=== PATIENT | female | born 1930 | race Caucasian/White ===

== ENCOUNTER 2016-07-19 10:25 | Inpatient (IN) | payer OTHER ==
[~2016-07-19] VITALS: Ht 165.1 cm; Wt 56.7 kg
[2016-07-19 10:25] VITALS: BP_SYST 138
[2016-07-19] MEDS ORDERED: GENTAMICIN 120 mg/100 mL NS 100 ML IV ONE (11:15)
[2016-07-19] MEDS ORDERED: NS 500 ML IV ONE (11:15)
[2016-07-19 11:24] LABS: ANION GAP 5 (5-15); CALCIUM 9.9 mg/dL (8.4-11.0); CHLORIDE 101 mmol/L (98-107); CREATININE 0.82 mg/dL (0.55-1.30); GLUCOSE 106 mg/dL (70-99); POTASSIUM 4.1 mmol/L (3.5-5.1); SODIUM SERUM 135 mmol/L (136-145); UREA NITROGEN, BLOOD 14 mg/dL (8-21)
[2016-07-19 11:25] LABS: BASOPHILS # (AUTO) 0.1 K/uL (0.0-0.2); BASOPHILS % (AUTO) 0.6 % (0.0-2.0); EOSINOPHILS # (AUTO) 0.1 K/uL (0.0-0.4); HEMATOCRIT 35.1 % (36-48); HEMOGLOBIN 11.3 g/dL (12.0-16.0); LYMPHOCYTES # (AUTO) 1.6 K/uL (1.0-5.5); LYMPHOCYTES % (AUTO) 15.4 % (20.5-51.5); MEAN CORPUSCULAR HEMOGLOBIN 27 pg (27-31); MEAN CORPUSCULAR HGB CONC 32 % (32-36); MEAN CORPUSCULAR VOLUME 85 fL (79.0-98.0); MONOCYTES # (AUTO) 0.8 K/uL (0.0-1.0); NEUTROPHILS # (AUTO) 7.5 K/uL (1.8-7.7); PLATELET COUNT (AUTO) 467 K/uL (130-430); RED BLOOD CELL COUNT(AUTO) 4.14 MIL/uL (4.2-6.2); RED CELL DISTRIBUTION WIDTH 13.6 % (9.0-15.0); WHITE BLOOD COUNT (AUTO) 10.1 K/uL (4.8-10.8)
[2016-07-19 11:28] LABS: ALANINE AMINOTRANSFERASE 14 U/L (12-78); ALBUMIN 3.6 g/dL (3.4-4.8); ASPARTATE AMINOTRANSFERASE 13 U/L (10-37); TOTAL BILIRUBIN 0.5 mg/dL (0.0-1.0); TOTAL PROTEIN, SERUM 7.5 g/dL (6.4-8.3)
[2016-07-19] MEDS ORDERED: ALBU8.5H8 INH (12:24)
[2016-07-19] MEDS ORDERED: ASPI81TA2 PO (12:24)
[2016-07-19] MEDS ORDERED: SEREVENT IH (12:24)
[2016-07-19] MEDS ORDERED: CALC-886 PO (12:24)
[2016-07-19] MEDS ORDERED: LIP40 PO (12:24)
[2016-07-19] MEDS ORDERED: LISI-600 PO (12:24)
[2016-07-19 13:19] LABS: BILIRUBIN,URINE 1+ (NEGATIVE); BLOOD, URINE 2+ (NEGATIVE); CLARITY/URINE CLOUDY (CLEAR); COLOR,URINE YELLOW (YELLOW); GLUCOSE,URINE NEGATIVE (NEGATIVE); KETONES,URINE NEGATIVE (NEGATIVE); LEUKOCYTE ESTERASE ,URINE 3+ (NEGATIVE); NITRITE, URINE NEGATIVE (NEGATIVE); PROTEIN URINE NEGATIVE (NEGATIVE); UROBILINOGEN,URINE 0.2 (0.2-1.0)
[2016-07-19 13:21] LABS: BACTERIA,URINE MODERATE /HPF (None Seen); MUCUS,URINE 1+ /LPF (None Seen); RBC,URINE 20-50 /HPF (0-3); WBC,URINE >100 /HPF (0-3)
[2016-07-19 16:58] VITALS: BP_SYST 113
[2016-07-19] MEDS ORDERED: ONDANSETRON HCL 4 MG/2 ML VIAL IVP PRN (17:00)
[2016-07-19] MEDS ORDERED: ACETAMINOPHEN 325 MG TABLET PO PRN (17:00)
[2016-07-19] MEDS ORDERED: ALBUTEROL SULFATE 0.083% 2.5 MG/3 ML VIAL.NEB INH PRN (17:00)
[2016-07-19] MEDS: NACL 0.9% 1,000 ML IV SCH (18:17)
[2016-07-19 19:50] VITALS: BP_SYST 113
[2016-07-19 20:00] VITALS: BP_SYST 113
[2016-07-19] MEDS: MEROPENEM 1 GM in NS 100 ML IV SCH (21:02)
[2016-07-19] MEDS: ALBUTEROL SULFATE 0.083% 2.5 MG/3 ML VIAL.NEB INH SCH (23:44)
[2016-07-20 00:27] VITALS: BP_SYST 130
[2016-07-20 02:07] VITALS: BP_SYST 120
[2016-07-20] MEDS: NACL 0.9% 1,000 ML IV SCH ×2 (07:30→19:27)
[2016-07-20 07:59] VITALS: BP_SYST 144
[2016-07-20 08:05] LABS: BASOPHILS % (AUTO) 0.5 % (0.0-2.0); EOSINOPHILS # (AUTO) 0.1 K/uL (0.0-0.4); EOSINOPHILS % (AUTO) 1.6 % (0.0-4.0); HEMATOCRIT 31.1 % (36-48); LYMPHOCYTES # (AUTO) 2.5 K/uL (1.0-5.5); LYMPHOCYTES % (AUTO) 32.8 % (20.5-51.5); MEAN CORPUSCULAR HEMOGLOBIN 27 pg (27-31); MEAN CORPUSCULAR HGB CONC 32 % (32-36); MEAN CORPUSCULAR VOLUME 85 fL (79.0-98.0); MONOCYTES # (AUTO) 0.7 K/uL (0.0-1.0); MONOCYTES % (AUTO) 9.1 % (1.7-9.3); NEUTROPHILS # (AUTO) 4.3 K/uL (1.8-7.7); PLATELET COUNT (AUTO) 338 K/uL (130-430); RED BLOOD CELL COUNT(AUTO) 3.66 MIL/uL (4.2-6.2); RED CELL DISTRIBUTION WIDTH 13.4 % (9.0-15.0); WHITE BLOOD COUNT (AUTO) 7.6 K/uL (4.8-10.8)
[2016-07-20] MEDS: MEROPENEM 1 GM in NS 100 ML IV SCH ×2 (08:46→20:35)
[2016-07-20] MEDS: ASPIRIN 81 MG TAB.CHEW PO SCH (08:46)
[2016-07-20] MEDS: ENOXAPARIN SODIUM 30 MG/0.3 ML SYRINGE SUBCUT SCH (08:46)
[2016-07-20] MEDS: ATORVASTATIN 20 MG TABLET PO SCH (08:46)
[2016-07-20 08:59] LABS: ANION GAP 7 (5-15); CALCIUM 8.8 mg/dL (8.4-11.0); CHLORIDE 106 mmol/L (98-107); CREATININE 0.73 mg/dL (0.55-1.30); GLUCOSE 107 mg/dL (70-99); POTASSIUM 4.1 mmol/L (3.5-5.1); SODIUM SERUM 138 mmol/L (136-145); UREA NITROGEN, BLOOD 13 mg/dL (8-21)
[2016-07-20] MEDS ORDERED: SALMETEROL XINAFOATE 50 MCG 1 EA DISK.W.DEV INH SCH (09:00)
[2016-07-20] MEDS: ALBUTEROL SULFATE 0.083% 2.5 MG/3 ML VIAL.NEB INH SCH ×3 (09:41→23:13)
[2016-07-20 12:26] VITALS: BP_SYST 108
[2016-07-20 16:56] VITALS: BP_SYST 111
[2016-07-20 20:00] VITALS: BP_SYST 111
[2016-07-21 00:15] VITALS: BP_SYST 96
[2016-07-21 04:03] VITALS: BP_SYST 120
[2016-07-21] MEDS: NACL 0.9% 1,000 ML IV SCH (05:07)
[2016-07-21 07:15] LABS: BASOPHILS # (AUTO) 0.1 K/uL (0.0-0.2); BASOPHILS % (AUTO) 0.9 % (0.0-2.0); EOSINOPHILS # (AUTO) 0.2 K/uL (0.0-0.4); EOSINOPHILS % (AUTO) 2.2 % (0.0-4.0); HEMATOCRIT 30.6 % (36-48); LYMPHOCYTES # (AUTO) 1.4 K/uL (1.0-5.5); LYMPHOCYTES % (AUTO) 20.1 % (20.5-51.5); MEAN CORPUSCULAR HEMOGLOBIN 27 pg (27-31); MEAN CORPUSCULAR HGB CONC 33 % (32-36); MEAN CORPUSCULAR VOLUME 84 fL (79.0-98.0); MONOCYTES # (AUTO) 0.6 K/uL (0.0-1.0); MONOCYTES % (AUTO) 8.9 % (1.7-9.3); NEUTROPHILS # (AUTO) 4.8 K/uL (1.8-7.7); NEUTROPHILS % (AUTO) 67.9 % (40.0-70.0); PLATELET COUNT (AUTO) 354 K/uL (130-430); RED BLOOD CELL COUNT(AUTO) 3.65 MIL/uL (4.2-6.2); RED CELL DISTRIBUTION WIDTH 13.6 % (9.0-15.0); WHITE BLOOD COUNT (AUTO) 7.1 K/uL (4.8-10.8)
[2016-07-21 07:48] LABS: ANION GAP 8 (5-15); CALCIUM 8.6 mg/dL (8.4-11.0); CHLORIDE 105 mmol/L (98-107); CREATININE 0.67 mg/dL (0.55-1.30); GLUCOSE 103 mg/dL (70-99); POTASSIUM 4.1 mmol/L (3.5-5.1); SODIUM SERUM 140 mmol/L (136-145); UREA NITROGEN, BLOOD 10 mg/dL (8-21)
[2016-07-21 08:00] VITALS: BP_SYST 130
[2016-07-21] MEDS: ATORVASTATIN 20 MG TABLET PO SCH (08:50)
[2016-07-21] MEDS: ASPIRIN 81 MG TAB.CHEW PO SCH (08:50)
[2016-07-21] MEDS: ENOXAPARIN SODIUM 30 MG/0.3 ML SYRINGE SUBCUT SCH (08:50)
[2016-07-21] MEDS ORDERED: LISINOPRIL 20 MG TABLET PO SCH (09:00)
[2016-07-21] MEDS: MEROPENEM 1 GM in NS 100 ML IV SCH ×2 (09:41→18:21)
[2016-07-21] MEDS ORDERED: LISI10TA5 PO (10:45)
[2016-07-21 12:30] VITALS: BP_SYST 126
[2016-07-21 15:59] VITALS: BP_SYST 118
[2016-07-21 18:57] VITALS: BP_SYST 97
== END 2016-07-21 19:00 | disposition home or self-care (01) | DRG 690 ==
LOC: SED 10:25 → SMU 14:35
PROVIDERS: ADMIT Internal Medicine; ATTEND Internal Medicine
DX: N39.0 Urinary tract infection, site not specified (principal); E78.5 Hyperlipidemia, unspecified; I10 Essential (primary) hypertension; J44.9 Chronic obstructive pulmonary disease, unspecified; G89.29 Other chronic pain; M54.9 Dorsalgia, unspecified; Z66 Do not resuscitate; D63.8 Anemia in other chronic diseases classified elsewhere; I95.9 Hypotension, unspecified; B96.20 Unspecified Escherichia coli [E. coli] as the cause of diseases classified elsewhere; R41.89 Other symptoms and signs involving cognitive functions and awareness; Z90.710 Acquired absence of both cervix and uterus; Z90.12 Acquired absence of left breast and nipple; Z79.82 Long term (current) use of aspirin; Z79.899 Other long term (current) drug therapy; Z88.0 Allergy status to penicillin; Z88.2 Allergy status to sulfonamides; Z91.09 Other allergy status, other than to drugs and biological substances; Z85.3 Personal history of malignant neoplasm of breast; Z87.891 Personal history of nicotine dependence
CPT/HCPCS: 36415; 71010; 74000-TC; 80048; 80053; 81000-TC; 83605; 83735-TC; 85025; 87040-TC; 87086; 87186-TC; 94640; 94760; 96365; 97110-GP; 99285; J1580; J1650; J2185; J7030; J7040